=== PATIENT | female | born 1990 | race Caucasian/White ===

== ENCOUNTER 2016-08-21 10:07 | Emergency (ER) | payer OTHER ==
--- NOTE | 2016-08-21 10:14 | PDOC ---
History of Present Illness - General Chief Complaint: Vaginal Bleeding Stated Complaint: VAGINAL BLEEDING Time Seen by Provider: 08/21/16 10:13 History Source: Patient Exam Limitations: No Limitations - History of Present Illness Initial Comments: 08/21/16 10:16 The patient is a 26-year-old female, A1 with a significant past medical history of a non-hormone eluding intrauterine device, who presents to the emergency department complaining of vaginal bleeding. She is s/p in March of 2016. An IUD was placed in June of 2016. She had bleeding for the first time after IUD placement 3 days just before , then in mid- july. Since then she has had intermittent spotting. She had menstruation then again a few days ago. She has bled a maximum of 4 pads in one day this past menses. She is interested in having her IUD removed. She denies dyspnea, dyspnea on exertion, dizziness/lightheadedness, loss of consciousness, generalized weakness. She denies bleeding from other areas of her body. She does not have a personal or family history of bleeding disorder. Past History - Past Medical History Allergies/Adverse Reactions: Allergies Allergy/AdvReac Type Severity Reaction Status Date / Time aspirin AdvReac Severe BLEEDING Verified 08/21/16 10:25 Home Medications: Ambulatory Orders Multivitamins [Tab-A-Vit -] 1 tab PO DAILY 08/21/16 Review of Systems - Review of Systems Comments:: 08/21/16 10:14 CONSTITUTIONAL: Absent: fever, chills, fatigue EYES: Absent: visual changes ENT: Absent: ear pain, sore throat CARDIOVASCULAR: Absent: chest pain, palpitations, loss of consciousness RESPIRATORY: Absent: cough, SOB GI: Absent: abdominal pain, nausea, vomiting, constipation, diarrhea GENITOURINARY: Present: see HPI Absent: dysuria, frequency, hematuria MUSKULOSKELETAL: Absent: back pain, arthralgia, myalgia SKIN: Absent: rash NEURO: Absent: headache, dizziness 08/21/16 10:40 *Physical Exam - Physical Exam Comments: 08/21/16 10:14 GENERAL: Well-appearing, well-nourished. No apparent distress. HEENT: Normocephalic, atraumatic. PERRL, EOM intact. CARDIOVASCULAR: Normal S1, S2. Regular rate and rhythm. PULMONARY: Clear to auscultation bilaterally. ABDOMEN: Soft, non-distended, non-tender. EXTREMITIES: Normal ROM in all four extremities. No gross deformities. SKIN: Warm, dry. No rash NEUROLOGICAL: No focal neurological deficits. She refused pelvic exam ED Treatment Course - LABORATORY CBC & Chemistry Diagram: 08/21/16 10:24 Medical Decision Making - Medical Decision Making 08/21/16 10:34 The patient is well appearing and in no acute distress Vitals noted Will obtain CBC and U HCG 08/21/16 10:55 Labs noted Clinical impression: Vaginal bleeding I discussed the physical exam findings, ancillary test results and final diagnoses with the patient. I answered all of the patient's questions. The patient was satisfied with the care received and felt comfortable with the discharge plan and treatment plan. The patient will call their primary care physician within 24 hours to arrange follow-up and will return to the Emergency Department with any new, persistent or worsening symptoms. *DC/Admit/Observation/Transfer Diagnosis at time of Disposition: Vaginal bleeding - Discharge Dispostion Disposition: HOME Condition at time of disposition: Improved - Referrals Referrals: Adrianna Downing MD [Staff Physician] - Call tomorrow - Patient Instructions Printed Discharge Instructions: DI for Vaginal Bleeding Additional Instructions: Return to the emergency department immediately with ANY new, persistent or worsening symptoms. You MUST call and follow up with your doctor tomorrow. Please make sure your doctor reviews the results of your emergency department evaluation. - Post Discharge Activity Work/School Note: Back to Work
[2016-08-21 10:24] VITALS: BP 120/43; PULSE 80; TEMP 98.2; BMI 25.2
[2016-08-21 10:29] LABS: BASOPHIL 0.4 % (0-2.0); EOSINOPHIL 0.5 % (0-4.5); MCH 26.4 pg (25.7-33.7); MCHC 31.5 g/dl (32.0-36.0); MEAN CELL VOLUME 83.8 fl (80-96); MEAN PLT VOLUME 7.5 fl (7.5-11.1); NEUTROPHILS 57.4 % (42.8-82.8); PLATELET COUNT 356 K/MM3 (134-434); RDW 14.4 % (11.6-15.6); WHITE BLOOD COUNT 8.7 K/mm3 (4.0-10.0)
== END 2016-08-21 11:08 | disposition home or self-care (01) ==
LOC: FER 10:07
DX: N93.9 Abnormal uterine and vaginal bleeding, unspecified (principal); Z97.5 Presence of (intrauterine) contraceptive device
CPT/HCPCS: 36415; 84703; 85025; 99282-25

== ENCOUNTER 2018-12-28 11:10 | Emergency (ER) | payer OTHER ==
[2018-12-28 11:17] VITALS: BP 110/69; PULSE 92; TEMP 98.9; BMI 23.4
[2018-12-28] MEDS ORDERED: IBUPROFEN 600 MG TABLET (FP) PO ONE ×2 (11:58→12:02)
--- NOTE | 2018-12-28 12:14 | PDOC ---
History of Present Illness - General Chief Complaint: Respiratory Stated Complaint: COUGH, SORE THROAT Time Seen by Provider: 12/28/18 11:19 History Source: Patient Exam Limitations: No Limitations - History of Present Illness Initial Comments: 12/28/18 12:03 HPI 28 YOF with h/o scoliosis presenting with sore throat, hoarse voice, cough, myalgias, back and neck pain x 2-3 days. Tmax yesterday at 103, resolved with ibuprofen. 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 Denies fever, chills, ear pain, neck pain, chest pain, SOB, palpitation, dizziness, weakness, N, V, D, abdominal pain, bladder and bowel problems, leg swelling, No travel. No suspicious food intake Allergies: ASA Past Medical History: as documented in EMR/HPI Social history: Lives with family. No tobacco, ETOH or drug use. Meds: as documented in EMR Review of systems Constitutional: +fever and malaise. HEENT: no headache or dizziness. No visual/hearing disturbances. +sore throat, +hoarse voice. +nasal congestion. CVS: no cp or syncope. Resp: no sob. +cough. Gastrointestinal: no abdominal pain, nausea or vomiting. Genitourinary: no urinary sx, hematuria. MUSCULOSKELETAL: No joint pain and swelling. +neck or back pain. +myalgias SKIN: no redness or skin changes, no discharge, no rash. No wounds. Hematologic: no easy bruising/bleeding. NEUROLOGIC: No headache, dizziness, LOC or altered mental status. No weakness, numbness or tingling. Allergic/Immunologic: asa allergies All other systems reviewed and negative, or as documented in HPI. Physical exam: General: Well appearing, awake and alert, NAD. HEENT: NCAT, PERRL, EOMI, clear conjunctiva, anicteric, moist mucus membranes, clear oropharynx. Airway patent, normal phonation. Uvula midline. No sinus tenderness, TM clear, no pinna tenderness to manipulation. Neck: neck supple, FROM Resp: CTAB, normal and even respirations, no respiratory distress CVS: RRR, no murmurs, 2+ peripheral pulses throughout, no peripheral edema Abdomen: soft, NTND, no peritoneal signs. Back: nontender midline, normal inspection and ROM MSK: no edema, HASTINGS x4, ROM intact. Neuro: alert Skin: warm and well perfused, cap refill <2 sec, normal color 12/28/18 12:17 12/28/18 12:21 Past History - Past Medical History Allergies/Adverse Reactions: Allergies Allergy/AdvReac Type Severity Reaction Status Date / Time aspirin AdvReac Severe BLEEDING Verified 12/28/18 11:12 Home Medications: Ambulatory Orders Multivitamins [Tab-A-Vit -] 1 tab PO DAILY 08/21/16 Asthma: Yes (childhood) COPD: No - Reproductive History (#): 1 Para: 1 - Suicide/Smoking/Psychosocial Hx Smoking History: Never smoked Have you smoked in the past 12 months: No Information on smoking cessation initiated: No Hx Alcohol Use: No Drug/Substance Use Hx: No Substance Use Type: None *Physical Exam - Vital Signs Last Vital Signs Temp Pulse Resp BP Pulse Ox 98.9 F 92 H 18 110/69 100 12/28/18 11:10 12/28/18 11:10 12/28/18 11:10 12/28/18 11:10 12/28/18 11:10 Medical Decision Making - Medical Decision Making 12/28/18 12:18 History of present illness as documented, vital signs within normal limits, no fever normotensive and no respiratory distress. diff diagnosis includes strep throat, pharyngitis, viral pharyngitis, viral syndrome, upper respiratory infection. No systemic or toxic findings to suggest deep space infection, abscess or pneumonia. No respiratory symptoms to suggest pna or other pathology Given ibuprofen for throat discomfort/pain. Able to tolerate oral intake. Strep test preliminarily negative, follow-up on throat cultures. This is most likely viral etiology versus pharyngitis versus viral syndrome and supportive care is advised exposures noted, cover cough and wash hands frequently soap and water with proper hygiene Hydration encouraged, warm Tea, lemon, honey and saltwater gargles or advised. Return precautions provided. Patient made aware of impression and plan, discharged in stable condition comfortable with plan *DC/Admit/Observation/Transfer Diagnosis at time of Disposition: Sore throat, Viral syndrome - Discharge Dispostion Disposition: HOME Condition at time of disposition: Stable Decision to Admit order: No - Referrals Ref[place]: [facility] [place] Group] [facility] [Provider Group] - Patient Instructions Printed Discharge Instructions: Sore Throat, DI for Viral Upper Respiratory Infection -- Adult Additional Instructions: salt water gargles, 1-2 spoonful of honey and warm lemon tea is appropriate as well for soothing qualities for sore throat/cough. minimize spread of infection given contagious nature, and cover your mouth and wash your hands adequately with soap and water. Stay well hydrated and rest. Cool air - walk around outdoors in the evening. May also try hot shower steam. This can alleviate the congestion and cough. Return precautions include inability to tolerate oral intake, respiratory distress, difficulty breathing, cyanosis, chest pain, lethargy, confusion, dehydration, high fevers or pain. follow up on throat cultures, your initial strep test is negative. - Post Discharge Activity Forms/Work/School Notes: Back to Work
== END 2018-12-28 12:20 | disposition home or self-care (01) ==
LOC: FER 11:10
DX: B34.9 Viral infection, unspecified (principal); J02.9 Acute pharyngitis, unspecified; J45.909 Unspecified asthma, uncomplicated
CPT/HCPCS: 87070; 87880; 99283-25

== ENCOUNTER 2019-03-18 13:30 | Emergency (ER) | payer OTHER | END 2019-03-18 17:59 | disposition home or self-care (01) | LOC: FER 13:30 ==

== ENCOUNTER 2023-11-14 08:20 | Emergency (ER) | payer OTHER ==
[2023-11-14 08:33] VITALS: BP 122/78; PULSE 115; RESP 20; TEMP 98.2; BMI 25.2
[2023-11-14] MEDS ORDERED: LIDOCAINE VISCOUS 2% ORAL/TOP 100 ML BOTTLE ONE (08:42)
[2023-11-14] MEDS: LIDOCAINE VISCOUS 2% ORAL/TOP 15 ML UNIT-DOSE CUP MM ONE (08:43)
[2023-11-14] MEDS: PENICILLIN V POTASSIUM 500 MG TABLET PO ONE (08:55)
[2023-11-14 11:13] LABS: THROAT:GRP A STREP NOT DETECTED (NOTDETECTED)
== END 2023-11-14 09:09 | disposition home or self-care (01) ==
LOC: FER 08:20
DX: J02.0 Streptococcal pharyngitis (principal); R50.9 Fever, unspecified; R13.10 Dysphagia, unspecified; Z20.822 Contact with and (suspected) exposure to COVID-19
CPT/HCPCS: 0241U-QW; 87651; 99284-25